=== PATIENT | male | born 1970 | race Caucasian/White ===

== ENCOUNTER 2020-03-10 13:07 | Emergency (ER) | payer MEDICAID ==
[~2020-03-10] VITALS: Ht 180.3 cm; Wt 68.0 kg
[2020-03-10 13:08] VITALS: BP 126/82
--- NOTE | 2020-03-10 13:57 | NUR ---
Alexy pham in [facility] - 03/10/20 at 1358 by GIOVANNA TO RM FROM [facility]
--- NOTE | 2020-03-10 13:58 | NUR ---
NO ANSWER FROM TRIAGE
--- NOTE | 2020-03-10 14:04 | NUR ---
NO ANSWER FROM TRIAGE. PT NOT FOUND IN LOBBY
--- NOTE | 2020-03-10 14:12 | NUR ---
NO ANSWER FROM ED MAIN. NOT FOUND IN LOBBY
== END 2020-03-10 14:15 | disposition left against medical advice (07) ==
LOC: ED 14:07
DX: S51.812A Laceration without foreign body of left forearm, initial encounter (principal); Z53.21 Procedure and treatment not carried out due to patient leaving prior to being seen by health care provider; W26.8XXA Contact with other sharp object(s), not elsewhere classified, initial encounter; Y93.89 Activity, other specified; Y92.89 Other specified places as the place of occurrence of the external cause; Y99.8 Other external cause status